=== PATIENT | female | born 1975 | race Caucasian/White ===

== ENCOUNTER 2017-05-18 19:43 | Emergency (ER) | payer BC, OTHER ==
[~2017-05-18] VITALS: Ht 162.6 cm; Wt 78.3 kg
[~2017-05-18 19:43] MED LIST: CEPH250 PO; HYDR-3533 PO; LIDO5DIS35 TD; ZOVI800T13 PO
[2017-05-18 19:54] VITALS: BP 118/75; PULSE 82; RESP 16; TEMP 97.6; O2SAT 99
[2017-05-18] MEDS ORDERED: TETANUS/DIPHTHERIA TOXOID ADULT 0.5 ML VIAL IM ONE (20:30)
--- NOTE | 2017-05-18 20:58 | PD ---
HPI Chief Complaint: Laceration/Skin Injury Time Seen by Provider: 20:18 Travel History International Travel<30 days: No Contact w/Intl Traveler<30days: No Traveled to known affect area: No History of Present Illness HPI 41-year-old female presents to the ED for evaluation of laceration of the chin. Sustained in the early hours of the morning between 2 and 3 AM. Patient states that she fell asleep on the couch after a few beers. She states that she woke up sometime later and was attempting to go to bed. She states that during this period time she became very dizzy and lost consciousness, falling to the ground and striking her chin on a table in the process. Patients is at bedside and states that he was in close proximity but did not witness the event. He states that the patient came around to light stimulation immediately. The patient states that she had a similar episode of dizziness approximately half an hour later while she was attempting to clean her wound. She states that she was able to sit down and this feeling eventually faded. She washed the wound with peroxide and water and approximated it with a piece of surgical tape. On presentation she denies headache, dizziness, vision changes, nausea, vomiting, difficulties with speaking, difficulties with gait, unilateral weakness. She states that she's felt "a little off" today but denies any further episodes of dizziness. He never had episodes like this before. She is unsure of the date of her last tetanus immunization. [facility] Past Medical History Medical History: Denies Significant Hx Tetanus Vaccination: > 5 Years Influenza Vaccination: No ?: Not LMP: 05/02/17 Past Surgical History Appendectomy: Yes Social History Alcohol Use: Yes (ONE - TWO A MONTH) Tobacco Use: No Substance Use: No Allergies-Medications (Allergen,Severity, Reaction): Coded Allergies: No Known Allergies (Verified Adverse Reaction, Unknown, 05/18/17) Reported Meds & Prescriptions Reported Meds & Active Scripts Active No Active Prescriptions or Reported Medications Review of Systems Except as stated in HPI: all other systems reviewed are Neg Physical Exam Narrative GENERAL: Well-nourished, well-developed white female in no acute distress. SKIN: Focused skin assessment warm/dry. There is a 2 cm laceration in the midline just below the mandible. The edges are well approximated and there is no acute bleeding. HEAD: Normocephalic. Atraumatic. No tenderness palpation of the facial bones. EYES: No scleral icterus. No injection or drainage. NECK: Supple, trachea midline. No JVD or lymphadenopathy. CARDIOVASCULAR: Regular rate and rhythm without murmurs, gallops, or rubs. RESPIRATORY: Breath sounds equal bilaterally. No accessory muscle use. GASTROINTESTINAL: Abdomen soft, non-tender, nondistended. MUSCULOSKELETAL: No cyanosis, or edema. NEUROLOGICAL: Awake and alert. Cranial nerves II through XII intact. Motor and sensory grossly within normal limits. Five out of 5 muscle strength in all muscle groups. Normal speech. BACK: Nontender without obvious deformity. No CVA tenderness. Data Data Last Documented VS Vital Signs Date Time Temp Pulse Resp B/P (MAP) Pulse Ox O2 Delivery O2 Flow Rate FiO2 05/18/17 19:54 97.6 82 16 118/75 (89) [address] Brain W/O Iv Contrast(Rout) (05/18/17 ) Tetanus/Diphtheria Tox Adult (Tetanus/Di (05/18/17 20:30) Ed Discharge Order (05/18/17 20:58) MDM Medical Decision Making Medical Screen Exam Complete: Yes Emergency Medical Condition: Yes Differential Diagnosis Laceration versus closed head injury versus less likely ICH versus less likely skull fracture versus other Narrative Course 41-year-old female presents to the ED for evaluation of laceration of the chin. Sustained in the early hours of the morning between 2 and 3 AM after the patient became dizzy, lost consciousness and fell to the ground. She states that she had a few beers and fell asleep on the couch last night, event happened as she was attempting to go to bed. was in close proximity, states that the patient roused immediately to voice and light stimulation. Patient endorses a second episode of dizziness short time later. States feeling "a little off" today but denies any further episodes of dizziness or red flag symptoms. Washed wound with peroxide and water and approximated with surgical tape at home. Unsure of the date of her last tetanus immunization. Vitals reviewed. No focal neurosensory deficits on exam. ENT exam unremarkable. There is a 2 cm laceration of the chin that is pretty well approximated, it was washed and closed with Dermabond. See my procedure note for details. Patient's tetanus immunization was updated. CT of the brain without concerning abnormalities per radiology read. I suspect this episode was related to drinking alcohol. Patient's instructed to monitor closely for further symptoms, follow-up with her primary care provider or return to the ED should they return. She indicated understanding of instructions and is agreeable to the care plan. The patient is stable and discharged home. Procedures Procedure Narrative LACERATION LOCATION: Midline chin, just below the mandible. LENGTH: 2 cm NUMBER OF STITCHES/YONG: 0 REPAIR: The wound was copiously irrigated and explored without evidence of foreign body, tendon injury or neurovascular injury. The wound was closed using Dermabond. This was a single layer repair. The patient was advised to keep the dressing clean and dry. Patient tolerated the procedure well. Diagnosis Primary Impression: Chin laceration Qualified Codes: S01.81XA - Laceration without foreign body of other part of head, initial encounter Additional Impressions: Immunization, tetanus toxoid Fall from standing Qualified Codes: W19.XXXA - Unspecified fall, initial encounter Closed head injury Qualified Codes: S09.90XA - Unspecified injury of head, initial encounter Referrals: Primary Care Physician Additional Instructions: Rest, hydrate. Return to normal, gentle activity as tolerated. No submerging the wound. The Dermabond will fall off on its own with time. Follow-up with the primary care provider. Return to the ED for any urgent or emergent medical condition. Scripts No Active Prescriptions or Reported Meds Disposition: 01 DISCHARGE HOME Condition: Stable Whit Monson May 18, 2017 20:58
--- NOTE | 2017-05-18 20:59 | RADRPT ---
EXAM DATE/TIME: 05/18/2017 20:41 [facility] COMPARISON: No previous studies available for comparison. INDICATIONS : Syncopal episode. RADIATION DOSE: 61.44 CTDIvol (mGy) MEDICAL HISTORY : None SURGICAL HISTORY : Appendectomy. ENCOUNTER: Initial ACUITY: 1 day PAIN SCALE: 0/10 LOCATION: cranial TECHNIQUE: Multiple contiguous axial images were obtained of the head. Using automated exposure control and adj ustment of the mA and/or kV according to patient size, radiation dose was kept as low as reasonably a chievable to obtain optimal diagnostic quality images. DICOM format image data is available electro nically for review and comparison. FINDINGS: CEREBRUM: The ventricles are normal for age. No evidence of midline shift, mass lesion, hemorrhage or acute in farction. No extra-axial fluid collections are seen. POSTERIOR FOSSA: The cerebellum and brainstem are intact. The 4th ventricle is midline. The cerebellopontine angle i s unremarkable. EXTRACRANIAL: The visualized portion of the orbits is intact. SKULL: The calvaria is intact. No evidence of skull fracture. CONCLUSION: Negative noncontrast head CT. Bao Gunderson MD on May 18, 2017 at 20:56 Board Certified Radiologist. This report was verified electronically.
== END 2017-05-18 21:07 | disposition home or self-care (01) ==
LOC: PHEFT 19:43
DX: S01.81XA Laceration without foreign body of other part of head, initial encounter (principal); R42 Dizziness and giddiness; W18.30XA Fall on same level, unspecified, initial encounter
CPT/HCPCS: 12011; 70450; 90471; 90714